=== PATIENT | male | born 1995 | race Hispanic/Latino ===

== ENCOUNTER 2017-11-13 06:02 | Emergency (ER) | payer SELFPAY ==
[2017-11-13] MEDS ORDERED: NA CHLORIDE 0.9% 1,000 ML ONE (06:22)
[2017-11-13 06:34] LABS: Absolute Lymphocytes (CBC) 1.9 K/uL (0.7-4.9); Absolute Monocytes 0.9 K/uL (0.1-1.3); Absolute Neutrophil 6.1 K/uL (1.8-8.0); Basophils % 0.6 % (0-1.3); Eosinophils % 5.3 % (0-4.4); Hematocrit 43.9 % (39.6-49.0); Lymphocytes % 20.3 % (15.3-44.8); MCH 29.5 pg (27.0-35.0); MCV 84.5 fL (80-100); MPV 9.9 fL (7.6-11.3)
[2017-11-13 06:42] LABS: BUN Blood Urea Nitrogen 11 mg/dL (7-18); Bicarbonate 27 mmol/L (21-32); Glucose Level 126 mg/dL (74-106); Potassium 3.7 mmol/L (3.5-5.1); Sodium Level 140 mmol/L (136-145)
--- NOTE | 2017-11-13 07:35 | RAD REPORT ---
EXAM DESCRIPTION: CT - Abdomen Pelvis W Contrast - 11/13/2017 7:03 am CLINICAL HISTORY: Sharp, intermittent abdominal pain, prior appendectomy COMPARISON: CT December 2016 TECHNIQUE: Biphasic, helical CT imaging of the abdomen and pelvis was performed following 100 ml non -ionic IV contrast. No oral contrast. All CT scans are performed using dose optimization technique as appropriate and may include automated exposure control or mA/KV adjustment according to patient size. FINDINGS: No suspicious findings in the lung bases. The liver, spleen, and pancreas show no suspicious findings. Gallbladder and biliary tree are also wi thout suspicious finding. Liver attenuation is borderline fatty infiltrated. Symmetric renal function is seen with no hydronephrosis or suspicious renal mass. No pyelonephritis o r acute renal parenchymal process. Renal contour and enhancement pattern is similar to 2017. Contract ed urinary bladder shows no gross abnormality. Prostate gland and seminal vesicles within normal limi ts. No dilated bowel loops or bowel wall thickening. Appendectomy clips are present. No free air, free fl uid or inflammatory stranding. No mass or bulky lymphadenopathy. Fat filled left inguinal hernia is present. Minimal fat extending into the origin of the right inguinal canal. A very small fat only umb ilical hernia is present. These have not changed in size since 2017. No adrenal abnormality. No suspicious bony findings. IMPRESSION: Contrast enhanced CT abdomen and pelvis showing no significant or suspicious finding. The above detailed findings are without clear change from December 2016.
--- NOTE | 2017-11-13 07:37 | ER ---
Nurse's Notes [facility] Name: Brad Hart Age: 22 yrs Sex: Male : 1995 Arrival Date: 11/13/2017 Time: 06:04 Bed 6 Private MD: Diagnosis: Lower abdominal pain, unspecified Presentation: 11/13 06:10 Presenting complaint: Patient states: sharp intermittent lower abd pain since ak1 yesterday. pt denies N/V/D. pt denies fever. pt denies pain with urination. Transition of care: patient was not received from another setting of care. Onset of symptoms was November 12, 2017. Risk Assessment: Do you want to hurt yourself or someone else? Patient reports no desire to harm self or others. Initial Sepsis Screen: Does the patient meet any 2 criteria? No. Patient's initial sepsis screen is negative. Does the patient have a suspected source of infection? No. Patient's initial sepsis screen is negative. Care prior to arrival: None. 06:10 Method Of Arrival: Ambulatory ak1 06:10 Acuity: MARLEY 3 ak1 Triage Assessment: 06:12 General: Appears in no apparent distress. Behavior is calm, cooperative. Pain: ak1 Complains of pain in suprapubic area and left lower quadrant Quality of pain is described as sharp, Is intermittent. EENT: No signs and/or symptoms were reported regarding the EENT system. Neuro: No deficits noted. Cardiovascular: No deficits noted. Respiratory: No deficits noted. GI: Abdomen is round Abdomen is tender to palpation in suprapubic area and left lower quadrant Reports lower abdominal pain, Patient currently denies diarrhea, nausea, vomiting. : No signs and/or symptoms were reported regarding the genitourinary system. Derm: No signs and/or symptoms reported regarding the dermatologic system. Musculoskeletal: No signs and/or symptoms reported regarding the musculoskeletal system. Historical: - Allergies: 06:12 No Known Allergies; ak1 - Home Meds: 06:12 None [Active]; ak1 - PMHx: 06:12 None; ak1 - PSHx: 06:12 Appendectomy; ak1 - Immunization history:: Adult Immunizations unknown. - Social history:: Smoking status: Patient uses tobacco products, denies chronic smoking, but will smoke occasionally, Patient/guardian denies using alcohol. - Ebola Screening: : No symptoms or risks identified at this time. Screenin:13 Abuse screen: Denies threats or abuse. Denies injuries from another. Nutritional ak1 screening: No deficits noted. Tuberculosis screening: No symptoms or risk factors identified. Fall Risk None identified. Assessment: 06:14 Reassessment: Patient appears in no apparent distress at this time. No changes from ak1 previously documented assessment. Patient is alert, oriented x 3, equal unlabored respirations, skin warm/dry/pink. see triage assessment. 06:24 GI: Bowel sounds present X 4 quads. ak1 06:50 Reassessment: pt in CT. ak1 06:55 Reassessment: report given to Kathryn Castellanos RN and Josee Hannah RN. ak1 07:09 Reassessment: Patient appears in no apparent distress at this time. No changes from tw2 previously documented assessment. Patient and/or family updated on plan of care and expected duration. Pain level reassessed. Patient is alert, oriented x 3, equal unlabored respirations, skin warm/dry/pink. 07:45 Reassessment: Patient appears in no apparent distress at this time. No changes from tw2 previously documented assessment. Patient and/or family updated on plan of care and expected duration. Pain level reassessed. Patient is alert, oriented x 3, equal unlabored respirations, skin warm/dry/pink. Vital Signs: 06:10 BP 127 / 91; Pulse 90; Resp 18; Temp 98.8(O); Pulse Ox 98% on R/A; Weight 120.2 kg (R); ak1 Height 5 ft. 6 in. (167.64 cm) (R); Pain 8/10; 07:09 BP 113 / 77; Pulse 79; Resp 17; Pulse Ox 98% on R/A; tw2 06:10 Body Mass Index 42.77 (120.20 kg, 167.64 cm) ak1 ED Course: 06:04 Patient arrived in ED. es 06:08 Magalie Lloyd FNP-C is PHCP. kb 06:08 Blair Das MD is Attending Physician. kb 06:11 Triage completed. ak1 06:12 Arm band placed on Patient placed in an exam room, on a stretcher, on pulse oximetry, ak1 Patient notified of wait time. 06:13 Patient has correct armband on for positive identification. Placed in gown. Bed in low ak1 position. Call light in reach. Side rails up X 1. Pulse ox on. NIBP on. 06:14 Diamante Marquis, SHILPI is Primary Nurse. ak1 06:22 Inserted saline lock: 20 gauge in right antecubital area, using aseptic technique. ao Blood collected. 06:[address] via wheelchair. kw1 07:03 CT Abd/Pelvis - W/Contrast In Process Unspecified. EDMS 07:03 CT completed. Patient tolerated procedure well. Patient moved back from [place]. kw1 07:09 Primary Nurse role handed off by Diamante Marquis RN tw2 07:09 Josee Alexis, SHILPI is Primary Nurse. tw2 07:09 No provider procedures requiring assistance completed. tw2 07:45 IV discontinued, intact, bleeding controlled, No redness/swelling at site. Pressure tw2 dressing applied. Administered Medications: 06:23 Drug: NS 0.9% 1000 ml Route: IV; Rate: 1000 ml; Site: right antecubital; ak1 07:38 Follow up: Response: No adverse reaction; IV Status: Completed infusion; IV Intake: tw2 1000ml Intake: 07:38 IV: 1000ml; Total: 1000ml. tw2 Outcome: 07:37 Discharge ordered by . kb 07:45 Discharged to home ambulatory. tw2 07:45 Condition: stable 07:45 Discharge instructions given to patient, Instructed on discharge instructions, follow up and referral plans. Demonstrated understanding of instructions, follow-up care. 07:45 Patient left the ED. tw2 Signatures: Dispatcher [employer] EDMagalie Rico, DIRECTOR OF CATERING-C DIRECTOR OF CATERING-Cherie Johnson Amber, RN RN ak1 Master Cunningham RN Josee Sanchez RN RN tw2 MarcosChrissie kw1
--- NOTE | 2017-11-13 07:38 | EDPHYS ---
Physician Documentation [facility] Name: Brad Hart Age: 22 yrs Sex: Male : 1995 Arrival Date: 11/13/2017 Time: 06:04 Bed 6 Private MD: ED Physician Blair Das HPI: 11/13 06:18 This 22 yrs old Male presents to ER via Ambulatory with complaints of kb Abdominal Pain. 06:18 The patient presents with abdominal pain in the left lower quadrant. Onset: The kb symptoms/episode began/occurred yesterday. The symptoms do not radiate. Associated signs and symptoms: none. The symptoms are described as achy. Modifying factors: The symptoms are alleviated by nothing, the symptoms are aggravated by pressure. Severity of pain: At its worst the pain was mild moderate in the emergency department the pain is unchanged. The patient has experienced a previous episode. The patient has not recently seen a physician. Historical: - Allergies: 06:12 No Known Allergies; ak1 - Home Meds: 06:12 None [Active]; ak1 - PMHx: 06:12 None; ak1 - PSHx: 06:12 Appendectomy; ak1 - Immunization history:: Adult Immunizations unknown. - Social history:: Smoking status: Patient uses tobacco products, denies chronic smoking, but will smoke occasionally, Patient/guardian denies using alcohol. - Ebola Screening: : No symptoms or risks identified at this time. ROS: 06:18 Constitutional: Negative for fever, chills, and weight loss, Cardiovascular: Negative kb for chest pain, palpitations, and edema, Respiratory: Negative for shortness of breath, cough, wheezing, and pleuritic chest pain, Back: Negative for injury and pain, : Negative for injury, bleeding, discharge, and swelling, MS/Extremity: Negative for injury and deformity, Skin: Negative for injury, rash, and discoloration, Neuro: Negative for headache, weakness, numbness, tingling, and seizure. 06:18 Abdomen/GI: Positive for abdominal pain, Negative for nausea, vomiting, and diarrhea, constipation, abdominal cramps, abdominal distension, anorexia. Exam: 06:18 Constitutional: This is a well developed, well nourished patient who is awake, alert, kb and in no acute distress. Head/Face: Normocephalic, atraumatic. Chest/axilla: Normal chest wall appearance and motion. Nontender with no deformity. No lesions are appreciated. Cardiovascular: Regular rate and rhythm with a normal S1 and S2. No gallops, murmurs, or rubs. Normal PMI, no JVD. No pulse deficits. Respiratory: Lungs have equal breath sounds bilaterally, clear to auscultation and percussion. No rales, rhonchi or wheezes noted. No increased work of breathing, no retractions or nasal flaring. Back: No spinal tenderness. No costovertebral tenderness. Full range of motion. Skin: Warm, dry with normal turgor. Normal color with no rashes, no lesions, and no evidence of cellulitis. MS/ Extremity: Pulses equal, no cyanosis. Neurovascular intact. Full, normal range of motion. Neuro: Awake and alert, GCS 15, oriented to person, place, time, and situation. Cranial nerves II-XII grossly intact. Motor strength 5/5 in all extremities. Sensory grossly intact. Cerebellar exam normal. Normal gait. 06:18 Abdomen/GI: Inspection: abdomen appears normal, Bowel sounds: normal, in all quadrants, Palpation: soft, moderate abdominal tenderness, in the left lower quadrant. Vital Signs: 06:10 BP 127 / 91; Pulse 90; Resp 18; Temp 98.8(O); Pulse Ox 98% on R/A; Weight 120.2 kg (R); ak1 Height 5 ft. 6 in. (167.64 cm) (R); Pain 8/10; 07:09 BP 113 / 77; Pulse 79; Resp 17; Pulse Ox 98% on R/A; tw2 06:10 Body Mass Index 42.77 (120.20 kg, 167.64 cm) ak1 MDM: 06:08 Patient medically screened. kb 06:21 Data reviewed: vital signs, nurses notes. Data interpreted: Pulse oximetry: on room air kb is 98 %. Interpretation: normal. 07:36 Counseling: I had a detailed discussion with the patient and/or guardian regarding: the kb historical points, exam findings, and any diagnostic results supporting the discharge/admit diagnosis, lab results, radiology results, the need for outpatient follow up, a family practitioner, to return to the emergency department if symptoms worsen or persist or if there are any questions or concerns that arise at home. 11/13 06:11 Order name: Basic Metabolic Panel; Complete Time: 07:01 kb 11/13 06:11 Order name: CBC with Diff; Complete Time: 07:01 kb 11/13 06:11 Order name: IV Saline Lock; Complete Time: 06:21 kb 11/13 06:11 Order name: CT Abd/Pelvis - W/Contrast; Complete Time: 07:36 kb 11/13 06:25 Order name: Urine Dipstick--Ancillary (enter results) mw2 11/13 06:11 Order name: Labs collected and sent; Complete Time: 06:21 kb 11/13 06:11 Order name: Urine Dipstick-Ancillary (obtain specimen); Complete Time: 06:24 kb Administered Medications: 06:23 Drug: NS 0.9% 1000 ml Route: IV; Rate: 1000 ml; Site: right antecubital; ak1 07:38 Follow up: Response: No adverse reaction; IV Status: Completed infusion; IV Intake: tw2 1000ml Disposition: 11/13/17 07:37 Discharged to Home. Impression: Lower abdominal pain, unspecified. - Condition is Stable. - Discharge Instructions: Abdominal Pain, Adult, [id number]. - Medication Reconciliation Form, Thank You Letter, Antibiotic Education, Prescription Opioid Use, Work release form form. - Follow up: Private Physician; When: 2 - 3 days; Reason: Recheck today's complaints, Continuance of care, Re-evaluation by your physician. Follow up: Emergency Department; When: As needed; Reason: Worsening of condition. Addendum: 11/15/2017 08:02 Co-signature as Attending Physician, Blair Das MD. r n Signatures: Dispatcher [employer] EDUT Magalie lLoyd, METER REPAIRER HELPER-C METER REPAIRER HELPER-Ckb Blair Das MD MD rn Krenek, Amber RN RN ak1 Josee Alexis RN RN tw2 Corrections: (The following items were deleted from the chart) 11/13 07:45 07:37 11/13/2017 07:37 Discharged to Home. Impression: Lower abdominal pain, tw2 unspecified. Condition is Stable. Forms are Medication Reconciliation Form, Thank You Letter, Antibiotic Education, Prescription Opioid Use. Follow up: Private Physician; When: 2 - 3 days; Reason: Recheck today's complaints, Continuance of care, Re-evaluation by your physician. Follow up: Emergency Department; When: As needed; Reason: Worsening of condition. kb
[2017-11-13 08:02] LABS: Urine Blood 2+ (NEG); Urine Glucose NEGATIVE (NEG); Urine Protein 1+ (NEG); Urine Specific Gravity >1.030 (1.005-1.030)
== END 2017-11-13 07:45 | disposition home or self-care (01) ==
LOC: ER 06:02
DX: R10.32 Left lower quadrant pain (principal); Z72.0 Tobacco use
CPT/HCPCS: 36415; 74177; 80048; 81003; 85025; 96360; 99284; J7030; Q9967

== ENCOUNTER 2018-04-04 11:27 | Emergency (ER) | payer SELFPAY ==
[2018-04-04] MEDS ORDERED: NA CHLORIDE 0.9% 1,000 ML ONE (12:30)
[2018-04-04 12:42] LABS: Absolute Lymphocytes (CBC) 1.8 K/uL (0.7-4.9); Absolute Monocytes 0.8 K/uL (0.1-1.3); Absolute Neutrophil 11.1 K/uL (1.8-8.0); Basophils % 0.7 % (0-1.3); Eosinophils % 2.9 % (0-4.4); Hematocrit 49.9 % (39.6-49.0); Lymphocytes % 12.4 % (15.3-44.8); MPV 9.6 fL (7.6-11.3); Monocytes % 5.3 % (3.3-12.3); RBC Red Blood Cell Count 5.86 M/uL (4.33-5.43)
[2018-04-04] MEDS ORDERED: PROMETHAZINE 25 MG/ML VIAL ONE (12:42)
[2018-04-04] MEDS ORDERED: PANTOPRAZOLE 40 MG INJ ONE (12:42)
[2018-04-04 12:57] LABS: ALT/SGPT 51 U/L (12-78); AST/SGOT 17 U/L (15-37); Albumin 4.1 g/dL (3.4-5.0); Alkaline Phosphatase 102 U/L (45-117); BUN Blood Urea Nitrogen 7 mg/dL (7-18); Bicarbonate 31 mmol/L (21-32); Bilirubin Direct 0.2 mg/dL (0-0.2); Bilirubin Total 0.7 mg/dL (0.2-1.0); Glucose Level 90 mg/dL (74-106); Lipase 99 U/L (73-393); Protein, Total 7.9 g/dL (6.4-8.2); Sodium Level 140 mmol/L (136-145)
--- NOTE | 2018-04-04 13:45 | RAD REPORT ---
EXAM DESCRIPTION: US - Abdomen Exam Limited - 04/04/2018 1:33 pm CLINICAL HISTORY: Abdominal pain. COMPARISON: None. FINDINGS: The gallbladder wall is not thickened. A gallstone is not seen. The biliary tree is normal caliber. IMPRESSION: Unremarkable gallbladder ultrasound.
--- NOTE | 2018-04-04 14:54 | ER ---
Nurse's Notes [facility] Name: Brad Hart Age: 23 yrs Sex: Male : 1995 Arrival Date: 04/04/2018 Time: 11:28 Bed 6 Private MD: Diagnosis: Gastritis, unspecified;Nausea and vomiting Presentation: 04/04 11:30 Presenting complaint: N/V/D and RUQ pain x 3 days. Tolerating liquids. Transition of hb care: patient was not received from another setting of care. Onset of symptoms was April 01, 2018. Risk Assessment: Do you want to hurt yourself or someone else? Patient reports no desire to harm self or others. Care prior to arrival: None. 11:30 Method Of Arrival: Ambulatory hb 11:30 Acuity: MARLEY 3 hb 12:20 Initial Sepsis Screen: Does the patient meet any 2 criteria? No. Patient's initial sv sepsis screen is negative. Does the patient have a suspected source of infection? No. Patient's initial sepsis screen is negative. Historical: - Allergies: 11:33 No Known Allergies; hb - Home Meds: 11:33 None [Active]; hb - PMHx: 11:33 None; hb - PSHx: 11:33 Appendectomy; hb - Immunization history:: Adult Immunizations up to date. - Social history:: Smoking status: Patient uses tobacco products, smokes one-half pack cigarettes per day. - Ebola Screening: : No symptoms or risks identified at this time. Screenin:40 Abuse screen: Denies threats or abuse. Denies injuries from another. Nutritional sv screening: No deficits noted. Tuberculosis screening: No symptoms or risk factors identified. Fall Risk None identified. Assessment: 12:20 General: Appears in no apparent distress. uncomfortable, obese, Behavior is calm, sv cooperative, appropriate for age. Pain: Complains of pain in epigastric area Pain currently is 8 out of 10 on a pain scale. Quality of pain is described as "full" Pain began 2-3 days ago. Is intermittent. Neuro: Level of Consciousness is awake, alert, obeys commands, Oriented to person, place, time, situation, Moves all extremities. Full function Gait is steady. Respiratory: Respiratory effort is even, unlabored, Respiratory pattern is regular, symmetrical. GI: Abdomen is obese, Stools are reported to be loose, Abd is soft X 4 quads Abdomen is tender to palpation in epigastric area Reports upper abdominal pain, intolerance of food, nausea, vomiting. Derm: Skin is pink, warm \\T\\ dry. 13:00 Reassessment: Patient appears in no apparent distress at this time. No changes from sv previously documented assessment. Patient and/or family updated on plan of care and expected duration. Pain level reassessed. Patient is alert, oriented x 3, equal unlabored respirations, skin warm/dry/pink. 15:20 Reassessment: Patient appears in no apparent distress at this time. Patient and/or sv family updated on plan of care and expected duration. Pain level reassessed. Patient is alert, oriented x 3, equal unlabored respirations, skin warm/dry/pink. Patient states feeling better. Patient states symptoms have improved. 15:21 Reassessment: Pt to get his IVF before discharge. sv 16:07 Reassessment: Patient appears in no apparent distress at this time. Patient and/or sv family updated on plan of care and expected duration. Pain level reassessed. Patient is alert, oriented x 3, equal unlabored respirations, skin warm/dry/pink. Patient denies pain at this time. Patient states feeling better. Patient states symptoms have improved. Vital Signs: 11:32 BP 145 / 92; Pulse 114; Resp 16; Temp 97.4; Pulse Ox 97% on R/A; Pain 8/10; hb 12:41 BP 120 / 91; Pulse 61; Resp 18; Pulse Ox 97% ; sv 13:00 BP 120 / 71; Pulse 61; Resp 18; Pulse Ox 97% on R/A; sv 14:46 BP 136 / 82; Pulse 73; Resp 18; Pulse Ox 98% ; sv ED Course: 11:28 Patient arrived in ED. as 11:31 Linda Rodríguez FNP-C is [facility]. snw 11:31 Blair Das MD is Attending Physician. snw 11:32 Triage completed. hb 11:32 Arm band placed on. hb 12:17 Selin Moreno, SHILPI is Primary Nurse. sv 12:20 Patient has correct armband on for positive identification. Placed in gown. Bed in low sv position. Call light in reach. Pulse ox on. NIBP on. Door closed. Head of bed elevated. 12:20 Initial lab(s) drawn, by me, sent to lab. Flu and/or RSV swab sent to lab. Inserted sv saline lock: 20 gauge in right antecubital area, using aseptic technique. Blood collected. Flushed right antecubital with 5 ml normal saline. 12:38 Flu Sent. sv 13:34 US Abdomen Limited In Process Unspecified. EDMS 16:07 No provider procedures requiring assistance completed. IV discontinued, intact, sv bleeding controlled, No redness/swelling at site. Pressure dressing applied. Administered Medications: 12:35 Drug: NS 0.9% 1000 ml Route: IV; Rate: 1 bolus; Site: right antecubital; sv 16:06 Follow up: Response: No adverse reaction; IV Status: Completed infusion; IV Intake: sv 1000ml 12:35 Drug: ProTONIX 40 mg Route: IVP; Site: right antecubital; sv 13:00 Follow up: Response: No adverse reaction sv 12:37 Drug: Phenergan 6.25 mg Route: IVP; Site: right antecubital; sv 13:00 Follow up: Response: No adverse reaction; Marked relief of symptoms; Nausea is decreasedsv Intake: 16:06 IV: 1000ml; Total: 1000ml. sv Outcome: 14:53 Discharge ordered by . snw 16:07 Discharged to home ambulatory. sv 16:07 Condition: stable 16:07 Condition: improved 16:07 Discharge instructions given to patient, Instructed on discharge instructions, follow up and referral plans. medication usage, Demonstrated understanding of instructions, follow-up care, medications, Prescriptions given X 2. 16:07 Patient left the ED. sv Signatures: Dispatcher [employer] [facility] Selin Moreno, RN RN sv Linda Rodríguez, HOLD WORKER-C HOLD WORKER-No Garcia as Blessing Dominique, RN RN hb
--- NOTE | 2018-04-04 14:54 | EDPHYS ---
Physician Documentation [facility] Name: Brad Hart Age: 23 yrs Sex: Male : 1995 Arrival Date: 04/04/2018 Time: 11:28 Bed 6 Private MD: ED Physician Blair Das HPI: 04/04 12:24 This 23 yrs old Male presents to ER via Ambulatory with complaints of snw Abdominal Pain. 12:24 The patient presents with abdominal pain in the epigastric area. Onset: The snw symptoms/episode began/occurred suddenly, 3 day(s) ago, and became persistent. The symptoms do not radiate. Associated signs and symptoms: Pertinent positives: anorexia, diarrhea, nausea, vomiting, cough. The symptoms are described as crampy. Severity of pain: At its worst the pain was moderate. The patient has experienced a previous episode. The patient has not recently seen a physician. Son with recent illness. Historical: - Allergies: 11:33 No Known Allergies; hb - Home Meds: 11:33 None [Active]; hb - PMHx: 11:33 None; hb - PSHx: 11:33 Appendectomy; hb - Immunization history:: Adult Immunizations up to date. - Social history:: Smoking status: Patient uses tobacco products, smokes one-half pack cigarettes per day. - Ebola Screening: : No symptoms or risks identified at this time. ROS: 12:23 Constitutional: Negative for fever, chills, and weight loss, Eyes: Negative for injury, snw pain, redness, and discharge, ENT: Negative for injury, pain, and discharge, Neck: Negative for injury, pain, and swelling, Cardiovascular: Negative for chest pain, palpitations, and edema, Respiratory: Negative for shortness of breath, cough, wheezing, and pleuritic chest pain, Back: Negative for injury and pain, : Negative for injury, bleeding, discharge, and swelling, MS/Extremity: Negative for injury and deformity, Skin: Negative for injury, rash, and discoloration, Neuro: Negative for headache, weakness, numbness, tingling, and seizure. 12:23 Abdomen/GI: Positive for abdominal pain, nausea, vomiting, and diarrhea, abdominal cramps, x 1 vomiting episode. Exam: 12:23 Constitutional: This is a well developed, well nourished patient who is awake, alert, snw and in no acute distress. Head/Face: Normocephalic, atraumatic. Eyes: Pupils equal round and reactive to light, extra-ocular motions intact. Lids and lashes normal. Conjunctiva and sclera are non-icteric and not injected. Cornea within normal limits. Periorbital areas with no swelling, redness, or edema. ENT: Nares patent. No nasal discharge, no septal abnormalities noted. Tympanic membranes are normal and external auditory canals are clear. Oropharynx with no redness, swelling, or masses, exudates, or evidence of obstruction, uvula midline. Mucous membranes moist. Neck: Trachea midline, no thyromegaly or masses palpated, and no cervical lymphadenopathy. Supple, full range of motion without nuchal rigidity, or vertebral point tenderness. No Meningismus. Chest/axilla: Normal chest wall appearance and motion. Nontender with no deformity. No lesions are appreciated. Cardiovascular: Regular rate and rhythm with a normal S1 and S2. No gallops, murmurs, or rubs. Normal PMI, no JVD. No pulse deficits. Respiratory: Lungs have equal breath sounds bilaterally, clear to auscultation and percussion. No rales, rhonchi or wheezes noted. No increased work of breathing, no retractions or nasal flaring. Back: No spinal tenderness. No costovertebral tenderness. Full range of motion. Skin: Warm, dry with normal turgor. Normal color with no rashes, no lesions, and no evidence of cellulitis. MS/ Extremity: Pulses equal, no cyanosis. Neurovascular intact. Full, normal range of motion. Neuro: Awake and alert, GCS 15, oriented to person, place, time, and situation. Cranial nerves II-XII grossly intact. Motor strength 5/5 in all extremities. Sensory grossly intact. Cerebellar exam normal. Normal gait. 12:23 Abdomen/GI: Inspection: abdomen appears normal, Bowel sounds: diminished, Palpation: mild abdominal tenderness, in the epigastric area. Vital Signs: 11:32 BP 145 / 92; Pulse 114; Resp 16; Temp 97.4; Pulse Ox 97% on R/A; Pain 8/10; hb 12:41 BP 120 / 91; Pulse 61; Resp 18; Pulse Ox 97% ; sv 13:00 BP 120 / 71; Pulse 61; Resp 18; Pulse Ox 97% on R/A; sv 14:46 BP 136 / 82; Pulse 73; Resp 18; Pulse Ox 98% ; sv MDM: 12:13 Patient medically screened. snw 14:54 Data reviewed: vital signs, nurses notes. Data interpreted: Pulse oximetry: on room air snw is 97 %. Interpretation: normal. Counseling: I had a detailed discussion with the patient and/or guardian regarding: the historical points, exam findings, and any diagnostic results supporting the discharge/admit diagnosis, lab results, radiology results, the need for outpatient follow up, to return to the emergency department if symptoms worsen or persist or if there are any questions or concerns that arise at home. Special discussion: Based on the history and exam findings, there is no indication for further emergent testing or inpatient evaluation. I discussed with the patient/guardian the need to see the train caller for further evaluation of the symptoms. I discussed with the patient/guardian the need to see the primary care provider for further evaluation of the symptoms. 04/04 12:16 Order name: Basic Metabolic Panel; Complete Time: 13:04 snw 04/04 12:16 Order name: CBC with Diff; Complete Time: 13:04 snw 04/04 12:16 Order name: Hepatic Function; Complete Time: 13:04 snw 04/04 12:16 Order name: Lipase; Complete Time: 13:04 snw 04/04 12:27 Order name: Flu; Complete Time: 13:04 em1 04/04 12:27 Order name: Flu snw 04/04 12:16 Order name: IV Saline Lock; Complete Time: 12:39 snw 04/04 12:16 Order name: Labs collected and sent; Complete Time: 12:39 snw 04/04 13:04 Order name: US Abdomen Limited; Complete Time: 13:49 snw Administered Medications: 12:35 Drug: NS 0.9% 1000 ml Route: IV; Rate: 1 bolus; Site: right antecubital; sv 16:06 Follow up: Response: No adverse reaction; IV Status: Completed infusion; IV Intake: sv 1000ml 12:35 Drug: ProTONIX 40 mg Route: IVP; Site: right antecubital; sv 13:00 Follow up: Response: No adverse reaction sv 12:37 Drug: Phenergan 6.25 mg Route: IVP; Site: right antecubital; sv 13:00 Follow up: Response: No adverse reaction; Marked relief of symptoms; Nausea is decreasedsv Disposition: 18:56 Co-signature as Attending Physician, Blair Das MD. rn Disposition: 04/04/18 14:53 Discharged to Home. Impression: Gastritis, unspecified, Nausea and vomiting. - Condition is Stable. - Discharge Instructions: Gastritis, Adult, Hypertension, Nausea and Vomiting, Adult, Rehydration, Adult. - Prescriptions for Nexium 20 mg Oral Capsule - take 1 capsule by ORAL route once daily; 20 capsule. Zofran 4 mg Oral Tablet - take 1 tablet by ORAL route every 12 hours As needed; 20 tablet. - Work release form, Medication Reconciliation Form, Thank You Letter, Antibiotic Education, Prescription Opioid Use form. - Follow up: Private Physician; When: 2 - 3 days; Reason: Recheck today's complaints, Continuance of care, Re-evaluation by your physician. Follow up: Emergency Department; When: As needed; Reason: Worsening of condition. Signatures: Dispatcher [employer] EDSelin Garcia RN RN Linda Gottlieb, DENTAL HYGIENIST MOBILE COORDINATOR-C DENTAL HYGIENIST MOBILE COORDINATOR-Csnw Blair Das MD MD rn Baxter, Heather, RN RN Corrections: (The following items were deleted from the chart) 12:24 12:23 Abdomen/GI: Positive for abdominal pain, nausea, vomiting, and diarrhea, snw snw 16:07 14:53 04/04/2018 14:53 Discharged to Home. Impression: Gastritis, unspecified; Nausea sv and vomiting. Condition is Stable. Forms are Medication Reconciliation Form, Thank You Letter, Antibiotic Education, Prescription Opioid Use. Follow up: Private Physician; When: 2 - 3 days; Reason: Recheck today's complaints, Continuance of care, Re-evaluation by your physician. Follow up: Emergency Department; When: As needed; Reason: Worsening of condition. snw
== END 2018-04-04 16:07 | disposition home or self-care (01) ==
LOC: ER 11:27
DX: K29.70 Gastritis, unspecified, without bleeding (principal); F17.210 Nicotine dependence, cigarettes, uncomplicated
CPT/HCPCS: 36415; 76705; 80048; 80076; 83690; 85025; 87804; 96361; 96374; 96375; 99284; C9113; J2550; J7030

== ENCOUNTER 2018-10-11 09:33 | Emergency (ER) | payer SELFPAY ==
[2018-10-11] MEDS ORDERED: FAMOTIDINE 20 MG/2 ML VIAL IV ONE (09:54)
[2018-10-11] MEDS ORDERED: NA CHLORIDE 0.9% 1,000 ML ONE (09:54)
[2018-10-11 10:18] LABS: Urine Blood TRACE (NEG); Urine Glucose NEGATIVE (NEG); Urine Protein NEGATIVE (NEG); Urine pH 7.5 (5.0-7.0)
[2018-10-11 10:32] LABS: Absolute Lymphocytes (CBC) 1.6 K/uL (0.7-4.9); Basophils % 0.5 % (0-1.3); Lymphocytes % 16.8 % (15.3-44.8); MPV 9.9 fL (7.6-11.3); RBC Red Blood Cell Count 4.91 M/uL (4.33-5.43)
[2018-10-11 10:47] LABS: ALT/SGPT 99 U/L (12-78); AST/SGOT 46 U/L (15-37); Albumin 3.8 g/dL (3.4-5.0); Alkaline Phosphatase 99 U/L (45-117); BUN Blood Urea Nitrogen 6 mg/dL (7-18); Bicarbonate 28 mmol/L (21-32); Bilirubin Direct 0.1 mg/dL (0-0.2); Bilirubin Total 0.4 mg/dL (0.2-1.0); Glucose Level 98 mg/dL (74-106); Lipase 105 U/L (73-393); Potassium 3.8 mmol/L (3.5-5.1); Protein, Total 7.4 g/dL (6.4-8.2); Sodium Level 142 mmol/L (136-145)
--- NOTE | 2018-10-11 11:29 | RAD REPORT ---
EXAM DESCRIPTION: US - Abdomen Exam Limited - 10/11/2018 11:15 am CLINICAL HISTORY: ABD PAIN COMPARISON: Abdomen Exam Limited dated 04/04/2018 FINDINGS: The gallbladder demonstrates no gallstones. No pericholecystic fluid or gallbladder wall t hickening. The common bile duct is normal measuring 3 mm. The liver demonstrates no findings of intrahepatic biliary dilatation. IMPRESSION: Unremarkable examination.
--- NOTE | 2018-10-11 11:42 | EDPHYS ---
Physician Documentation [facility] Name: Brad Hart Age: 23 yrs Sex: Male : 1995 Arrival Date: 10/11/2018 Time: 09:35 Bed 16 Private MD: ED Physician Roel Traylor HPI: 10/11 10:49 This 23 yrs old Male presents to ER via Ambulatory with complaints of jackie Epigastric Pain. 10:49 The patient presents with abdominal pain in the epigastric area, in the upper abdomen, jackie abdominal distention in the upper abdomen, in the lower abdomen. Onset: The symptoms/episode began/occurred 1 day(s) ago. The symptoms do not radiate. Associated signs and symptoms: none. The symptoms are described as crampy, dull. Modifying factors: The symptoms are alleviated by nothing, the symptoms are aggravated by food. Severity of pain: At its worst the pain was moderate in the emergency department the pain is unchanged. The patient has experienced similar episodes in the past, a few times. Historical: - Allergies: 09:39 No Known Allergies; la1 - Home Meds: 09:39 None [Active]; la1 - PMHx: 09:39 None; la1 - PSHx: 09:39 Appendectomy; la1 - Immunization history:: Adult Immunizations up to date. - Social history:: Smoking status: Patient uses tobacco products, denies chronic smoking, but will smoke occasionally. - Ebola Screening: : No symptoms or risks identified at this time. - Family history:: not pertinent. ROS: 10:49 Constitutional: Negative for fever, chills, and weight loss, Eyes: Negative for injury, jackie pain, redness, and discharge, ENT: Negative for injury, pain, and discharge, Neck: Negative for injury, pain, and swelling, Cardiovascular: Negative for chest pain, palpitations, and edema, Respiratory: Negative for shortness of breath, cough, wheezing, and pleuritic chest pain, Back: Negative for injury and pain, : Negative for injury, bleeding, discharge, and swelling, MS/Extremity: Negative for injury and deformity, Skin: Negative for injury, rash, and discoloration, Neuro: Negative for headache, weakness, numbness, tingling, and seizure, Psych: Negative for depression, anxiety, suicide ideation, homicidal ideation, and hallucinations, Allergy/Immunology: Negative for hives, rash, and allergies, Endocrine: Negative for neck swelling, polydipsia, polyuria, polyphagia, and marked weight changes, Hematologic/Lymphatic: Negative for swollen nodes, abnormal bleeding, and unusual bruising. 10:49 Abdomen/GI: Positive for abdominal pain, nausea and vomiting, of the epigastric area and right upper quadrant. Exam: 10:49 Constitutional: This is a well developed, well nourished patient who is awake, alert, jackie and in no acute distress. Head/Face: Normocephalic, atraumatic. Eyes: Pupils equal round and reactive to light, extra-ocular motions intact. Lids and lashes normal. Conjunctiva and sclera are non-icteric and not injected. Cornea within normal limits. Periorbital areas with no swelling, redness, or edema. ENT: Nares patent. No nasal discharge, no septal abnormalities noted. Tympanic membranes are normal and external auditory canals are clear. Oropharynx with no redness, swelling, or masses, exudates, or evidence of obstruction, uvula midline. Mucous membranes moist. Neck: Trachea midline, no thyromegaly or masses palpated, and no cervical lymphadenopathy. Supple, full range of motion without nuchal rigidity, or vertebral point tenderness. No Meningismus. Chest/axilla: Normal chest wall appearance and motion. Nontender with no deformity. No lesions are appreciated. Cardiovascular: Regular rate and rhythm with a normal S1 and S2. No gallops, murmurs, or rubs. Normal PMI, no JVD. No pulse deficits. Respiratory: Lungs have equal breath sounds bilaterally, clear to auscultation and percussion. No rales, rhonchi or wheezes noted. No increased work of breathing, no retractions or nasal flaring. Back: No spinal tenderness. No costovertebral tenderness. Full range of motion. Male : Normal genitalia with no discharge or lesions. Skin: Warm, dry with normal turgor. Normal color with no rashes, no lesions, and no evidence of cellulitis. MS/ Extremity: Pulses equal, no cyanosis. Neurovascular intact. Full, normal range of motion. Neuro: Awake and alert, GCS 15, oriented to person, place, time, and situation. Cranial nerves II-XII grossly intact. Motor strength 5/5 in all extremities. Sensory grossly intact. Cerebellar exam normal. Normal gait. Psych: Awake, alert, with orientation to person, place and time. Behavior, mood, and affect are within normal limits. 10:49 Abdomen/GI: Inspection: abdomen appears normal, Bowel sounds: normal, Palpation: mild abdominal tenderness, moderate abdominal tenderness, in the epigastric area and right upper quadrant, Liver: no appreciated palpable abnormalities, Hernia: not appreciated. Vital Signs: 09:39 BP 141 / 83; Pulse 84; Resp 16; Temp 97.8; Pulse Ox 98% on R/A; Weight 117.93 kg; la1 Height 5 ft. 7 in. (170.18 cm); Pain 8/10; 09:39 Body Mass Index 40.72 (117.93 kg, 170.18 cm) la1 MDM: 09:48 Patient medically screened. [facility] 10:51 Data reviewed: vital signs, nurses notes, lab test result(s), radiologic studies, [facility] ultrasound. 10/11 09:50 Order name: Basic Metabolic Panel; Complete Time: 10:48 [facility] 10/11 09:50 Order name: CBC with Diff; Complete Time: 10:46 [facility] 10/11 09:50 Order name: Creatinine for Radiology; Complete Time: 10:46 [facility] 10/11 09:50 Order name: Hepatic Function; Complete Time: 10:48 [facility] 10/11 09:50 Order name: Lipase; Complete Time: 10:48 [facility] 10/11 10:12 Order name: Urine Dipstick--Ancillary (enter results) ar5 10/11 09:50 Order name: IV Saline Lock; Complete Time: 10:22 [facility] 10/11 09:50 Order name: Labs collected and sent; Complete Time: 10:22 [facility] 10/11 09:50 Order name: Urine Dipstick-Ancillary (obtain specimen); Complete Time: 10:05 [facility] 10/11 10:18 Order name: Urine Dipstick-Ancillary EDMS 10/11 10:48 Order name: US Abdomen Limited; Complete Time: 11:33 [facility] Administered Medications: 10:21 Drug: NS 0.9% 1000 ml Route: IV; Rate: 1 bolus; Site: left antecubital; jl7 11:30 Follow up: IV Status: Completed infusion jl7 10:22 Drug: Pepcid 20 mg Route: IVP; Site: left antecubital; jl7 10:45 Follow up: Response: No adverse reaction jl7 Disposition: 10/11/18 11:41 Discharged to Home. Impression: Abdominal tenderness, Functional dyspepsia. - Condition is Stable. - Discharge Instructions: Abdominal Pain, Adult, Nausea and Vomiting, Adult, Abdominal Pain, Adult, [id number]. - Prescriptions for Bentyl 20 mg Oral Tablet - take 1 tablet by ORAL route every 6 hours As needed; 20 tablet. Pepcid 20 mg Oral Tablet - take 1 tablet by ORAL route every 12 hours for 10 days; 20 tablet. Zofran 4 mg Oral Tablet - take 1 tablet by ORAL route every 12 hours As needed; 20 tablet. - Medication Reconciliation Form, Thank You Letter, Antibiotic Education, Prescription Opioid Use form. - Follow up: Private Physician; When: 2 - 3 days; Reason: Recheck today's complaints, Continuance of care, Re-evaluation by your physician. Follow up: Daniel Taveras MD; When: 2 - 3 days; Reason: Recheck today's complaints, Re-evaluation by your physician. - Problem is new. - Symptoms have improved. Signatures: Dispatcher [employer] EDOK Roel Traylor MD MD cha Attema, Lee RN RN la1 John Carver RN RN jl7 Corrections: (The following items were deleted from the chart) 12:15 11:41 10/11/2018 11:41 Discharged to Home. Impression: Abdominal tenderness; Functional jl7 dyspepsia. Condition is Stable. Forms are Medication Reconciliation Form, Thank You Letter, Antibiotic Education, Prescription Opioid Use. Follow up: Private Physician; When: 2 - 3 days; Reason: Recheck today's complaints, Continuance of care, Re-evaluation by your physician. Follow up: Daniel Taveras; When: 2 - 3 days; Reason: Recheck today's complaints, Re-evaluation by your physician. Problem is new. Symptoms have improved. jackie
--- NOTE | 2018-10-11 11:42 | ER ---
Nurse's Notes [facility] Name: Brad Hart Age: 23 yrs Sex: Male : 1995 Arrival Date: 10/11/2018 Time: 09:35 Bed 16 Private MD: Diagnosis: Abdominal tenderness;Functional dyspepsia Presentation: 10/11 09:38 Presenting complaint: Patient states: Upper abd pain since last night with N/V/D. la1 Transition of care: patient was not received from another setting of care. Onset of symptoms was October 11, 2018. Risk Assessment: Do you want to hurt yourself or someone else? Patient reports no desire to harm self or others. Initial Sepsis Screen: Does the patient meet any 2 criteria? No. Patient's initial sepsis screen is negative. Does the patient have a suspected source of infection? No. Patient's initial sepsis screen is negative. Care prior to arrival: None. 09:38 Method Of Arrival: Ambulatory la1 09:38 Acuity: MARLEY 3 la1 Historical: - Allergies: 09:39 No Known Allergies; la1 - Home Meds: 09:39 None [Active]; la1 - PMHx: 09:39 None; la1 - PSHx: 09:39 Appendectomy; la1 - Immunization history:: Adult Immunizations up to date. - Social history:: Smoking status: Patient uses tobacco products, denies chronic smoking, but will smoke occasionally. - Ebola Screening: : No symptoms or risks identified at this time. - Family history:: not pertinent. Screenin:25 Abuse screen: Denies threats or abuse. Denies injuries from another. Nutritional jl7 screening: No deficits noted. Tuberculosis screening: No symptoms or risk factors identified. Fall Risk IV access (20 points). Total Pearl Fall Scale indicates No Risk (0-24 pts). Assessment: 10:15 General: Appears in no apparent distress. uncomfortable, Behavior is calm, cooperative, jl7 appropriate for age. Pain: Complains of pain in epigastric area Pain does not radiate. Pain currently is 8 out of 10 on a pain scale. Pain began 1 day ago. Is continuous. Neuro: Level of Consciousness is awake, alert, obeys commands, Oriented to person, place, time, situation. Cardiovascular: Patient's skin is warm and dry. Respiratory: Airway is patent Respiratory effort is even, unlabored, Respiratory pattern is regular, symmetrical. GI: Abdomen is round non-distended, Abd is soft and non tender X 4 quads. : No signs and/or symptoms were reported regarding the genitourinary system. EENT: No signs and/or symptoms were reported regarding the EENT system. Derm: Skin is pink, warm \T\ dry. Musculoskeletal: No signs and/or symptoms reported regarding the musculoskeletal system. 11:15 Reassessment: Patient appears in no apparent distress at this time. No changes from jl7 previously documented assessment. Patient and/or family updated on plan of care and expected duration. Pain level reassessed. Patient is alert, oriented x 3, equal unlabored respirations, skin warm/dry/pink. Vital Signs: 09:39 BP 141 / 83; Pulse 84; Resp 16; Temp 97.8; Pulse Ox 98% on R/A; Weight 117.93 kg; la1 Height 5 ft. 7 in. (170.18 cm); Pain 8/10; 09:39 Body Mass Index 40.72 (117.93 kg, 170.18 cm) la1 ED Course: 09:35 Patient arrived in ED. as 09:39 Triage completed. la1 09:40 Arm band placed on left wrist. la1 09:43 John Carver RN is Primary Nurse. jl7 09:48 Roel Traylor MD is Attending Physician. jackie 10:07 Urine collected: clean catch specimen, clear. dh3 10:15 Initial lab(s) drawn, by pa, sent to lab. Inserted saline lock: 20 gauge in left jl7 antecubital area, using aseptic technique. Blood collected. 10:25 Patient has correct armband on for positive identification. Placed in gown. Bed in low jl7 position. Call light in reach. Side rails up X 1. Pulse ox on. NIBP on. 11:14 US Abdomen Limited In Process Unspecified. EDMS 11:15 No provider procedures requiring assistance completed. jl7 11:41 Daniel Taveras MD is Referral Physician. jackie 12:14 IV discontinued, intact, bleeding controlled, No redness/swelling at site. Pressure jl7 dressing applied. Administered Medications: 10:21 Drug: NS 0.9% 1000 ml Route: IV; Rate: 1 bolus; Site: left antecubital; jl7 11:30 Follow up: IV Status: Completed infusion 7 10:22 Drug: Pepcid 20 mg Route: IVP; Site: left antecubital; 7 10:45 Follow up: Response: No adverse reaction jl7 Outcome: 11:41 Discharge ordered by . jackie 12:14 Discharged to home ambulatory. [facility] 12:14 Condition: stable 12:14 Discharge instructions given to patient, Instructed on discharge instructions, follow up and referral plans. medication usage, Demonstrated understanding of instructions, follow-up care, medications, Prescriptions given X 3. 12:15 Patient left the ED. jl7 Signatures: Dispatcher [employer] EDMS Roel Traylor MD MD cha Martinez, Amelia as Attema, Lee RN RN angelia1 John Carver RN RN jl7 Rosa Barriga 3
== END 2018-10-11 12:15 | disposition home or self-care (01) ==
LOC: ER 09:33
DX: K30 Functional dyspepsia (principal); Z72.0 Tobacco use
CPT/HCPCS: 36415; 76705; 80048; 80076; 81003; 83690; 85025; 96361; 96374; 99284; J7030